=== PATIENT | male | born 1970 | race Caucasian/White ===

== ENCOUNTER 2025-01-21 10:03 | Observation (INO) ==
--- NOTE | 2024-12-22 15:32 | PAT Medication Instructions ---
Medication Instructions Date of Service December 22, 2024 Home Medications atorvastatin 40 mg tablet 40 mg PO DAILY celecoxib 200 mg capsule (Celebrex) 200 mg PO DAILY dapagliflozin propanediol 10 mg tablet (Farxiga) 10 mg PO DAILY dextroamphetamine-amphetamine 10 mg tablet (Adderall) 20 mg PO QAM duloxetine 30 mg capsule,delayed release 30 mg PO DAILY duloxetine 60 mg capsule,delayed release 60 mg PO DAILY gabapentin 300 mg capsule 300 mg PO BID levothyroxine 100 mcg tablet 100 mcg PO DAILY lisinopril 40 mg tablet 40 mg PO DAILY tirzepatide 15 mg/0.5 mL subcutaneous pen injector (Mounjaro) 15 mg subcut Q7D Continue as directed atorvastatin 40 mg tablet 40 mg PO DAILY duloxetine 30 mg capsule,delayed release 30 mg PO DAILY duloxetine 60 mg capsule,delayed release 60 mg PO DAILY levothyroxine 100 mcg tablet 100 mcg PO DAILY ASK your surgeon for instructions celecoxib 200 mg capsule (Celebrex) 200 mg PO DAILY STOP taking at least 7 days before surgery tirzepatide 15 mg/0.5 mL subcutaneous pen injector (Mounjaro) 15 mg subcut Q7D STOP taking 3 days before surgery dapagliflozin propanediol 10 mg tablet (Farxiga) 10 mg PO DAILY DO NOT take the morning of surgery dextroamphetamine-amphetamine 10 mg tablet (Adderall) 20 mg PO QAM lisinopril 40 mg tablet 40 mg PO DAILY Take morning of surgery With a small sip of water, OTHERWISE NOTHING TO EAT OR DRINK AFTER MIDNIGHT: gabapentin 300 mg capsule 300 mg PO BID Take evening before surgery gabapentin 300 mg capsule 300 mg PO BID Other Notes If you have any questions please call us at [phone] or [phone] or [phone] or [phone]
--- NOTE | 2024-12-29 12:43 | Anesthesiology Consultation ---
Date of Service December 29, 2024 Assessment & Plan (1) Encounter for pre-operative examination: - Check BSG DOS - Infectious disease screening: Per assessment on 12/29/24- No known recent infectious disease contacts or current infectious disease symptoms. - GLP-1 medication instructions: Patient informed by PAT to stop 7 days prior to surgery- voiced understanding. DOS 01/21. Advised last dose to be 01/14. - Patient acceptable risk for surgery pending surgeon-ordered PCP preop evaluation (Dr. Emerson Mcdaniels, appt 01/08). Chart Review Chart Review: Patient seen in Pre Admission Testing Teaching & Discussion Pre-Anesthesia Teaching/Discussion Notes: Instructed NPO after midnight before surgery,except medications with 15 cc of water. Medication instructions provided according to the PAT guidelines. History Surgery Operation Date: 01/21/25 07:45 Proposed Procedures p L2-L5 Decompression and Fusion - Warren Zelaya DO Height/Weight Height: 6 ft Weight: 158.6 kg Allergies Allergy/AdvReac Type Severity Reaction Status Date / Time No Known Allergies Allergy Verified 12/22/24 11:13 Medications Home Medications Medication Instructions Recorded Confirmed Last Taken atorvastatin 40 mg tablet 40 mg PO DAILY 12/22/24 12/22/24 Unknown celecoxib 200 mg capsule (Celebrex) 200 mg PO DAILY 12/22/24 12/22/24 Unknown dapagliflozin propanediol 10 mg 10 mg PO DAILY 12/22/24 12/22/24 Unknown tablet (Farxiga) dextroamphetamine-amphetamine 10 20 mg PO QAM 12/22/24 12/22/24 Unknown mg tablet (Adderall) duloxetine 30 mg capsule,delayed 30 mg PO DAILY 12/22/24 12/22/24 Unknown release duloxetine 60 mg capsule,delayed 60 mg PO DAILY 12/22/24 12/22/24 Unknown release gabapentin 300 mg capsule 300 mg PO BID 12/22/24 12/22/24 Unknown levothyroxine 100 mcg tablet 100 mcg PO DAILY 12/22/24 12/22/24 Unknown lisinopril 40 mg tablet 40 mg PO DAILY 12/22/24 12/22/24 Unknown tirzepatide 15 mg/0.5 mL 15 mg subcut Q7D 12/22/24 12/22/24 Unknown subcutaneous pen injector (Arina) Past Medical History Medical History History of ADHD History of anxiety History of arthritis Hx shoulder/knee steroid injections History of hyperlipidemia History of hypertension History of hypothyroidism History of prediabetes Hx of gastroesophageal reflux (GERD) Morbid obesity Sleep apnea CPAP (rare use since weight loss) Exercise / Class Metabolic Activity II 4-5 Yardwork/Stairs/Walk up hill (one FS: No CP, no SOB) Past Surgical History Surgical History History of anal fistulotomy Hx of colonoscopy Past Anesthesia History No Hx of Anesthesia Complications and No Family Hx of Anesthesia Complications History of PONV No Hx of PONV and No Hx of Motion Sickness Social History Smoking Status: Former smoker Do You Dip or Chew Tobacco: No (Quit 2 weeks ago- now using nicotine-free pouches (Advised NPO guidelines))) Smoking End Date: Quit several years ago Hx Alcohol Use: Yes alcohol intake frequency: holidays/special occasions only Hx Substance Use: Yes substance use type: marijuana (Age earlier 20s) Review of Systems Patient denies chest pain, shortness of breath, dyspnea on exertion, fever, chills, cough, wheezing, palpitations. Physical Exam Vital Signs BP 101/70 P 79 TEMP 98.1 SP02 95%RA RESP 16 Physical Full cervical extension range of motion. Full TMJ range of motion. TMD > 3.5 finger breaths Mallampati Score II Dentition: missing molars, Lungs: clear throughout to auscultation Cardiac: regular rate and rhythm, no murmurs noted Spine: normal Carotid arteries: negative bruit Extremities: no LE edema Short, thick neck Lab Results Anesthesia Preop Results Results Anesthesia Widget: WBC 5.81 K/ul (4.8-10.8) 12/29/24 Hgb 16.0 g/dl (14.0-18.0) 12/29/24 Hct 46.8 % (42.0-52.0) 12/29/24 Plt 177 K/uL (130-400) 12/29/24 Na 138 mmol/L (136-145) 12/29/24 K 3.9 mmol/L (3.5-5.1) 12/29/24 Cl 102 mmol/L (98-107) 12/29/24 CO2 30 mmol/L (21-32) 12/29/24 BUN 21 mg/dl (6-23) 12/29/24 Creat 0.72 mg/dl (0.6-1.4) 12/29/24 Glucose Level 93 mg/dl (70-99(Fasting)) 12/29/24 PT 10.5 Seconds (9.0-12.0) 12/29/24 PTT 29 Seconds (21-31) 12/29/24 INR 1.0 (0.9-1.1) 12/29/24 HA1c 5.1 % (4.5-5.6) 12/29/24 Urine Color Yellow 12/29/24 Urine Appearance Clear (Clear) 12/29/24 Urine pH 5.5 (4.5-7.5) 12/29/24 Urine Specific [place] 1.025 (1.000-1.030) 12/29/24 Urine Protein Negative (Negative) 12/29/24 Urine Glucose (UA) 3+ (Negative) H 12/29/24 Urine Ketones Negative (Negative) 12/29/24 Urine Blood Negative (Negative) 12/29/24 Urine Nitrite Negative (Negative) 12/29/24 Urine Bilirubin Negative (Negative) 12/29/24 Urine Urobilinogen Negative (Negative) 12/29/24 Urine Leukocyte Esterase Negative (Negative) 12/29/24 Blood Type A Positive 12/29/24 Antibody Screen NEGATIVE 12/29/24 Testing Electrocardiogram Date: 12/29/24 NSR at 77bpm. Low voltage QRS. Chest X-Ray Date: 12/29/24 FINDINGS: Heart size and pulmonary vasculature are normal. No consolidation or pleural effusion. IMPRESSION: No acute findings.
[2025-01-21] MEDS: LR 60ML/HR IV SCH (10:24)
[2025-01-21] MEDS: CeleBREX 200 MG CAP PO SCH (10:25)
[2025-01-21] MEDS: ACETAMINOPHEN 500 MG TAB PO SCH (10:25)
[2025-01-21] MEDS: GABAPENTIN 600 MG DOSE PO SCH (10:26)
[2025-01-21] MEDS ORDERED: DEXAMETHASONE SOD INJ 4 MG/ML VIAL ONE (10:40)
[2025-01-21] MEDS ORDERED: PROPOFOL IV EMULSION 10 MG/ML 20 ML VIAL IV ONE (10:40)
[2025-01-21] MEDS ORDERED: KETAMINE HCL 10MG/ML SYR ONE (10:40)
[2025-01-21] MEDS ORDERED: ONDANSETRON INJ 2 MG/ML 2 ML VIAL ONE (10:40)
[2025-01-21] MEDS ORDERED: SUGAMMADEX SODIUM 200 MG/2 ML VIAL IV ONE (10:40)
[2025-01-21] MEDS ORDERED: LIDOCAINE 2% 2 ML VIAL/AMP(20MG/ML) INFIL ONE (10:40)
[2025-01-21] MEDS ORDERED: MIDAZOLAM HCL 1 MG/ML 2ML VIAL ONE (10:40)
[2025-01-21] MEDS ORDERED: ROCURONIUM BROMIDE 10 MG/ML 5 ML VIAL IV ONE (10:40)
[2025-01-21] MEDS: LR 15ML/HR IV SCH (10:55)
[2025-01-21] MEDS ORDERED: ONDANSETRON INJ 2 MG/ML 2 ML VIAL IV PRN ×2 (11:37→18:12)
[2025-01-21] MEDS ORDERED: ATROPINE SULFATE 0.1 MG/ML 10ML SYR IV PRN (11:37)
--- NOTE | 2025-01-21 12:11 | History & Physical Bridge Note ---
Date of Service January 21, 2025 History & Physical Bridge Note I have examined the patient, reviewed the History & Physical and in the interval since the performance of the History & Physical I have noted the following changes of clinical significance: no changes noted
--- NOTE | 2025-01-21 12:12 | History & Physical Report ---
Date of Service January 21, 2025 Assessment & Plan (1) Multilevel lumbosacral spondylosis with radiculopathy: Plan: L2-L5 decompression and fusion History of Present Illness Chief Complaint: Back and bilateral leg pain Primary Care Provider: Emerson Mcdaniels DO This is a 54-year-old male who presents for chronic persistent back and bilateral leg pain after failing course of nonoperative care he is here for surgical invention. Allergies Allergy/AdvReac Type Severity Reaction Status Date / Time No Known Allergies Allergy Verified 01/21/25 10:20 Home Medications Medication Instructions Recorded Confirmed Type atorvastatin 40 mg tablet 40 mg PO DAILY 12/22/24 01/21/25 History celecoxib 200 mg capsule (Celebrex) 200 mg PO DAILY 12/22/24 01/21/25 History dapagliflozin propanediol 10 mg 10 mg PO DAILY 12/22/24 01/21/25 History tablet (Farxiga) dextroamphetamine-amphetamine 10 20 mg PO QAM 12/22/24 01/21/25 History mg tablet (Adderall) duloxetine 30 mg capsule,delayed 30 mg PO DAILY 12/22/24 01/21/25 History release duloxetine 60 mg capsule,delayed 60 mg PO DAILY 12/22/24 01/21/25 History release gabapentin 300 mg capsule 300 mg PO BID 12/22/24 01/21/25 History levothyroxine 100 mcg tablet 100 mcg PO DAILY 12/22/24 01/21/25 History lisinopril 40 mg tablet 40 mg PO DAILY 12/22/24 01/21/25 History tirzepatide 15 mg/0.5 mL 15 mg subcut Q7D 12/22/24 01/21/25 History subcutaneous pen injector (Mounjaro) Past Med/Surg History Problem List (Updated 01/21/25 @ 12:11 by Warren Zelaya DO) Multilevel lumbosacral spondylosis with radiculopathy Encounter for pre-operative examination Medical History History of ADHD History of anxiety History of arthritis Hx shoulder/knee steroid injections History of hyperlipidemia History of hypertension History of hypothyroidism History of prediabetes Hx of gastroesophageal reflux (GERD) Morbid obesity Sleep apnea CPAP (rare use since weight loss) Surgical History History of anal fistulotomy Hx of colonoscopy Social History Smoking Status: Former smoker Smoking End Date: Quit several years ago; Second Hand Exposure: Yes (hx as child); Do You Dip or Chew Tobacco: No (Quit 2 weeks ago- now using nicotine-free pouches (Advised NPO guidelines))); Tobacco Cessation Education Requested by Patient: No Hx Alcohol Use: Yes Hx Substance Use: Yes Preferred Language: Welsh Communication Ability: Effective Licensing Registration Examiner Required: No Beliefs That Will Affect Care: None Current Living Situation: Spouse Other Information That Helps Us Care for You: No Feels Safe at Home: Yes Safety Concerns: Feels Safe At This Time Assistive Devices: Glasses Assistive Devices Comment: reading glasses prn Physical Exam Physical Exam: Patient alert and oriented Heart regular rhythm Lungs clear Results & Data Results & Data Vital Signs (Past 12 Hours) Vital Signs Temp Pulse Resp BP Pulse Ox O2 Del Method 01/21/25 10:18 36.6 C 80 20 139/73 98 Room Air
[2025-01-21] MEDS ORDERED: GLYCOPYRROLATE 0.2 MG/ML VIAL ONE (12:33)
[2025-01-21] MEDS: ceFAZolin 3000MG 3,000 MG/72.5 ML BAG IV SCH ×2 (13:00→22:15)
[2025-01-21] MEDS: BUPIVACAINE/EPINEPHRINE 0.25% 1:200,000 30 ML VIAL ONE (13:29)
[2025-01-21] MEDS ORDERED: PHENYLEPHRINE 100MCG/ML 5ML SYR ONE (13:31)
[2025-01-21] MEDS ORDERED: ePHEDrine sulfate 50 MG/5 ML SYR ONE (14:33)
[2025-01-21] MEDS: ceFAZolin 330 MG/ML 1 GM VIAL ONE (15:20)
[2025-01-21] MEDS: FLOSEAL HEMOSTATIC MATRIX 10ML TOP ONE (15:27)
--- NOTE | 2025-01-21 15:37 | Operative Report ---
Post Operative Report Pre & Post Diagnosis Operation Date: 01/21/25 12:15 Pre-Op Diagnosis: #1 multilevel lumbosacral spondylosis with radiculopathy #2 lumbar disc herniation with radiculopathy #3 lumbar spinal stenosis #4 morbid obesity Post-Op Diagnosis: Same I identified the patient and participated in the time-out.: Yes Procedure Operation Date: 01/21/25 12:15 Actual Procedures #1 lumbar decompression bilateral medial facetectomies and foraminotomies L2-L3, L3-L4, L4-L5 and L5 5 S1. #2 posterior spinal fusion L3-S1. #3 posterior posterior segmental instrumentation L3-S1 using camber. #4 interbody fusion L3- L4, L4-L5 and L5-S1. #5 placement Spira 12 x 26 mm at L3-L4, 13 x 26 mm at all 4 L5 and 14 x 26 mm x 2 at L5-S1. #6 placement locally harvested morselized autograft in the posterior gutters per #7 placement of Proteus combined with Koros in the posterior lateral gutters and os design with Koros in the interbody spaces. #8 application of versa wrap of the exposed dura. Surgeon Warren Zelaya, DO Mannequin Mold Maker Leonor Petersen Estimated Blood Loss 500 Findings See Below The patient is 6 foot tall weighing over 157 kg with a BMI in excess of 47. The patient's body habitus did contribute to significant technical difficulty with positioning exposure and the procedure itself and at least 50% increased operative time. And recommending a modifier 22. Specimens None Indications This is a 54-year-old male who presents publish diagnosis of failing send course of nonoperative care is here for surgical invention. Description of Procedure Patient was met with identified informed consent obtained. Patient was then taken to the operative suite underwent patient placed in a prone position on the Jamin table atop the Clayton frame. All bony prominences well-padded eyes inspected to ensure no external pressure placed upon them. This point the lumbar spine was prepped and draped in normal sterile fashion. Sharp dissection with the assistance of Bovie cautery from down to and exposing the lamina transverse processes of L2-3 L4-L5 and the sacral ala bilaterally. I did extend the dissection to incorporate the L5-S1 level based on our preoperative fluoroscopy films demonstrating marked vacuum phenomenon and retrolisthesis at L5-S1. I then performed a complete laminectomy of L5 L4 L3 impression laminectomy of L2 including bilateral medial facetectomies and foraminotomies addressing severe neural compression and foraminal stenosis. Disc herniation was noted at L5-S1 on the right was also addressed. Pedicle screws placed in L3-L4-L5 and S1 levels bilaterally with assistance of fluoroscopy and appropriate size jenny placed. By way of transforaminal approach on the left discectomy of L5-S1 was performed endplates corrected to subcortical bleeding bone and a 14 x 26 mm Spira cage tapped in position. Then proceeded to the right transforaminal region at L5-S1. Again discectomy performed. Endplates guided to subcortical mean bone and a second 14 x 26 mm Spira cage tapped into position. And then proceeded to L4-L5 by way of transforaminal approach on the right complete discectomy was performed endplates guided to subcortical bleeding bone and a 13 x 26 mm Spira cage tapped into position. Lastly approached L3-L4. Bilateral transforaminal approach on the right discectomy was performed. Endplates guided to subcortical and bone and a 12 x 26 mm Spira cage tapped into position. Please note Koros bone graft was placed anteriorly and all disc spaces and cages packed with os design bone graft prior to placement. Rods were then locked into position bilaterally. The transverse processes of L3-L4-L5 and the sacral ala burred to subcortical bleeding bone. Proteus combined with Koros and local autograft placed in posterior gutters. Versa wrap placed over the exposed dura. 15 round ARLEN drain inserted. The incision was then closed with 1 Vicryl in the fascia 2-0 Vicryl subcutaneously and 4-0 Monocryl for final skin closure. Steri-Strips sterile dressing placed. Patient waken taken to PACU stable condition. Please note Leonor Petersen was present of entire procedure involved the patient positioning complex portion of the surgery and final skin closure. I attest to the content of the Intraoperative Record and any orders documented therein. Any exceptions are noted below.
--- NOTE | 2025-01-21 15:50 | Fluoroscopy Report ---
FL lumbar spine 2-3V CLINICAL HISTORY: L2-L5 DECOMPRESSION AND FUSION COMPARISON STUDY: None FLUOROSCOPY TIME: 35 seconds FLUOROSCOPY IMAGES: 4 EXPOSURE DOSE: 47 mGy FINDINGS: Fluoroscopy was provided for lumbar metallic fusion. IMPRESSION: Intraoperative fluoroscopy. ACT 112: Negative or not required by law. Electronically signed by: Augustus David M.D. 01/21/2025 3:49 PM
--- NOTE | 2025-01-21 16:51 | Anesthesiology Progress Note ---
Date of Service January 21, 2025 Anesthesia Post Procedure Vital Signs Vital Signs: Temp Pulse Resp BP Pulse Ox O2 Del Method O2 Flow Rate 01/21/25 16:45 68 14 133/68 92 Nasal Cannula 3 01/21/25 16:35 71 12 112/61 93 Nasal Cannula 3 01/21/25 16:25 71 14 123/65 92 Nasal Cannula 3 01/21/25 16:15 72 16 113/62 93 Nasal Cannula 01/21/25 16:05 70 18 116/67 95 Nasal Cannula 01/21/25 15:55 36.1 C L 78 16 136/73 97 Nasal Cannula 01/21/25 10:18 36.6 C 80 20 139/73 98 Room Air Pain Intensity Lower Back: Pain Intensity: 5 Transfer of Care Handoff Completed per policy Notes Mental Status: alert / awake / arousable Patient Amnestic to Procedure: Yes Nausea / Vomiting: adequately controlled Pain: adequately controlled Airway Patency, RR, SpO2: stable & adequate BP & HR: stable & adequate Hydration State: stable & adequate Anesthetic Complications: no major complications apparent
[2025-01-21] MEDS ORDERED: ONDANSETRON 4 MG OD TAB PO PRN (18:12)
[2025-01-21] MEDS ORDERED: ACETAMINOPHEN 1,000 MG/100 ML VIAL IV PRN (18:12)
[2025-01-21] MEDS ORDERED: METOCLOPRAMIDE HCL INJ 5 MG/ML 2 ML VIAL IV PRN (18:12)
[2025-01-21] MEDS ORDERED: DO NOT ADMINISTER PNEUMOCOCCAL VACCINE PRN (18:12)
[2025-01-21] MEDS ORDERED: SOD PHOSPHATE/SOD BIPHOSPHATE ENEMA 132 ML BTL PR PRN (18:12)
[2025-01-21] MEDS ORDERED: LORazepam 0.5 MG TAB PO PRN (18:12)
[2025-01-21] MEDS ORDERED: MAGNESIUM HYDROXIDE SUSP 30 ML UDC PO PRN (18:12)
[2025-01-21] MEDS ORDERED: diphenhydrAMINE Capsule 25 MG CAP PO PRN (18:12)
[2025-01-21] MEDS ORDERED: DO NOT ADMINISTER FLU VACCINE PRN (18:12)
[2025-01-21] MEDS ORDERED: NALOXONE HCL 0.4 MG/1 ML VIAL/CARP IV PRN (18:12)
[2025-01-21] MEDS ORDERED: FAMOTIDINE 20 MG TAB PO PRN (18:12)
[2025-01-21] MEDS ORDERED: ALUMINUM/MAGNESIUM SUSP 30 ML UDC PO PRN (18:12)
[2025-01-21] MEDS ORDERED: PROMETHAZINE 12.5 MG/50.5 ML BAG IV PRN (18:12)
[2025-01-21] MEDS: DOCUSATE SODIUM/SENNA 50/8.6MG TAB PO SCH (21:20)
[2025-01-21] MEDS: dexAMETHasone 8 MG in SYRINGE 0 ML IV SCH (21:20)
[2025-01-21] MEDS: GABAPENTIN 300 MG CAP PO SCH (21:20)
--- NOTE | 2025-01-22 02:33 | Hospitalist Consultation ---
Date of Consultation January 22, 2025 Assessment & Plan (1) Multilevel lumbosacral spondylosis with radiculopathy: (2) History of ADHD: (3) History of hyperlipidemia: (4) History of hypertension: (5) History of hypothyroidism: (6) Sleep apnea: (7) Diabetes mellitus type 2, controlled: Plan Patient is a 54-year-old male with past medical history of ADHD, hypothyroidism, diabetes mellitus type 2, hypertension, hyperlipidemia, and lumbar radiculopathy secondary to disc herniation and spinal stenosis who is POD #0 status post L2-L5 decompression and fusion. Hospitalist service consulted for continued management of chronic conditions. Lumbar radiculopathy secondary to disc herniation and spinal stenosis Underwent decompression and fusion on 01/21 Pain currently well-controlled with current analgesic regimen Patient had been taking Celebrex, as well as gabapentin and Cymbalta in an effort to control the lower back and bilateral lower extremity pain that came as a consequence of his medical radiculopathy. Patient expressing preference to eventually discontinue his medications, which will likely need to be tapered off (i.e. Cymbalta and Gabapentin). Encouraged outpatient follow-up with PCP. Further management per surgery team Hypertension Blood pressure is currently well-controlled Continue home lisinopril 40 mg daily Hyperlipidemia Continue home atorvastatin 40 mg daily Hypothyroidism Continue home levothyroxine 100 mcg every morning DM-II Most recent hemoglobin A1c from 01/05 of 5.1% Patient on Farxiga 10 mg and Mounjaro at home, the latter of which she also uses for management of his weight Would consider monitor of bsg given use of steroid medications as this can cause elevations Can continue Farxiga medication during current admission, I can resume Mounjaro after discharge Supervising Physician Co-Signing Physician Notes Attending addendum: I have physically seen this patient, have supervised the medical residents activities, and agree with the H&P unless as otherwise noted. Assessment and Plan: The patient is a 54-year-old male with a past medical history including ADHD, hypothyroidism, diabetes mellitus type 2, hypertension, and hyperlipidemia. He is status post L2-L5 decompression and fusion by Dr. José Miguel Zelaya for lumbar radiculopathy secondary to disc herniation and spinal stenosis earlier in the day today. The hospitalist service is consulted for medical management. The patient is seen postoperatively and is medically stable. Lumbar radiculopathy secondary to disc herniation and spinal stenosis status post L2-L5 decompression and fusion- Seen postoperatively is medically stable Pain management per primary surgical team Hypertension- Blood pressure is well-controlled at this time Continue lisinopril 40 mg daily Follow BMP in the a.m. Diabetes mellitus- Most recent A1c on 01/05 was 5.1 Farxiga to be continued during admission Mounjaro can be resumed after discharge Place on Accu-Cheks with NovoLog SSI Hyperlipidemia- Continue atorvastatin Hypothyroidism- Continue levothyroxine [facility] hospitalist service will follow along during hospital stay History of Present Illness Reason for Consultation: Medical management Requesting Physician: Warren Zelaya DO Attending Physician: Sukhwinder Mtz MD History of Present Illness Patient is a 54-year-old male with past medical history of ADHD, hypothyroidism, diabetes mellitus type 2, hypertension, hyperlipidemia, and lumbar radiculopathy secondary to disc herniation and spinal stenosis who is POD #0 status post L2-L5 decompression and fusion. Patient had been experiencing lumbar pain with radiation to bilateral lower extremities with symptoms being R>L since 2014. When symptoms started, patient had been managed conservatively with daily dosing of Mobic, which was successful in controlling his symptoms for close to 9 years. After this time, patient had poorly controlled symptoms despite regular use of Mobic, was switched to Celebrex in combination with gabapentin and Cymbalta and attempt to manage his pain, but was ultimately unsuccessful, and therefore decision was made to proceed with surgical intervention. On arrival to bedside, patient states that he is feeling generally well and feels that his pain is well-controlled. Denies having any fevers, chills, chest pain, shortness of breath, nausea, vomiting, diarrhea, or any other systemic symptoms. Allergies Allergy/AdvReac Type Severity Reaction Status Date / Time No Known Allergies Allergy Verified 01/21/25 10:20 Home Medications Medication Instructions Recorded Confirmed Type atorvastatin 40 mg tablet 40 mg PO DAILY 12/22/24 01/21/25 History celecoxib 200 mg capsule (Celebrex) 200 mg PO DAILY 12/22/24 01/21/25 History dapagliflozin propanediol 10 mg 10 mg PO DAILY 12/22/24 01/21/25 History tablet (Farxiga) dextroamphetamine-amphetamine 10 20 mg PO QAM 12/22/24 01/21/25 History mg tablet (Adderall) duloxetine 30 mg capsule,delayed 30 mg PO DAILY 12/22/24 01/21/25 History release duloxetine 60 mg capsule,delayed 60 mg PO DAILY 12/22/24 01/21/25 History release gabapentin 300 mg capsule 300 mg PO BID 12/22/24 01/21/25 History levothyroxine 100 mcg tablet 100 mcg PO DAILY 12/22/24 01/21/25 History lisinopril 40 mg tablet 40 mg PO DAILY 12/22/24 01/21/25 History tirzepatide 15 mg/0.5 mL 15 mg subcut Q7D 12/22/24 01/21/25 History subcutaneous pen injector (Mounjaro) oxycodone 5 mg tablet 5 mg PO Q6H PRN pain #30 tabs 01/22/25 Rx tramadol 50 mg tablet 50 mg PO Q6H PRN pain, moderate 01/22/25 Rx #30 tabs Patient History Medical History History of ADHD History of anxiety History of arthritis Hx shoulder/knee steroid injections History of hyperlipidemia History of hypertension History of hypothyroidism History of prediabetes Hx of gastroesophageal reflux (GERD) Morbid obesity Sleep apnea CPAP (rare use since weight loss) Surgical History History of anal fistulotomy Hx of colonoscopy Social History Smoking Status: Former smoker Smoking End Date: Quit several years ago; Second Hand Exposure: Yes (hx as child); Do You Dip or Chew Tobacco: No (Quit 2 weeks ago- now using nicotine-free pouches (Advised NPO guidelines))); Tobacco Cessation Education Requested by Patient: No Hx Alcohol Use: Yes Hx Substance Use: Yes Preferred Language: Greek Communication Ability: Effective Support Analyst Required: No Beliefs That Will Affect Care: None Current Living Situation: Spouse Other Information That Helps Us Care for You: No Feels Safe at Home: Yes Safety Concerns: Feels Safe At This Time Assistive Devices: Cane Assistive Devices Comment: reading glasses prn Physical Exam Physical Exam: General: Awake alert and oriented in all spheres, afebrile, calm, nontoxic, no acute distress HEENT: EOM intact, PERRL Cardiac: Regular rate and rhythm, no rubs murmurs or gallops appreciated Pulmonary: Clear to auscultation bilaterally, normal respiratory effort, no respiratory distress GI: Soft, nontender, nondistended Extremity: No swelling or calf tenderness in bilateral lower extremities Results & Data Results & Data Vital Signs (Past 12 Hours) Vital Signs Temp Pulse Resp BP BP Pulse Ox O2 Del Method 01/21/25 23:23 37.6 C H 89 18 127/76 94 Room Air 01/21/25 21:10 37.1 C 81 18 134/78 95 Room Air 01/21/25 20:19 36.9 C 83 18 156/80 H 95 Nasal Cannula 01/21/25 19:30 Nasal Cannula 01/21/25 19:10 36.3 C L 77 18 164/89 H 96 Nasal Cannula 01/21/25 18:40 79 16 183/92 H 98 Nasal Cannula 01/21/25 18:29 Nasal Cannula 01/21/25 18:10 36.9 C 79 16 118/73 98 Nasal Cannula 01/21/25 17:30 67 16 100/57 L 93 Nasal Cannula 01/21/25 17:00 36.5 C 68 14 139/68 92 Nasal Cannula 01/21/25 16:45 68 14 133/68 92 Nasal Cannula 01/21/25 16:35 71 12 112/61 93 Nasal Cannula 01/21/25 16:25 71 14 123/65 92 Nasal Cannula 01/21/25 16:15 72 16 113/62 93 Nasal Cannula 01/21/25 16:05 70 18 116/67 95 Nasal Cannula 01/21/25 15:55 36.1 C L 78 16 136/73 97 Nasal Cannula O2 Flow Rate 01/21/25 23:23 01/21/25 21:10 01/21/25 20:19 2 01/21/25 19:30 2 01/21/25 19:10 2 01/21/25 18:40 2 01/21/25 18:29 2 01/21/25 18:10 2 01/21/25 17:30 3 01/21/25 17:00 3 01/21/25 16:45 3 01/21/25 16:35 3 01/21/25 16:25 3 01/21/25 16:15 3 01/21/25 16:05 3 01/21/25 15:55 3 Resident Activity Tracking Resident Involvement: Resident Care Provided Care Provided: Adult Hospital Medicine
[2025-01-22] MEDS: LEVOTHYROXINE SODIUM 100 MCG TABLET PO SCH (05:41)
[2025-01-22] MEDS: POLYETHYLENE (MIRALAX) 17 GM PACK PO SCH (05:41)
[2025-01-22] MEDS: ACETAMINOPHEN 500 MG TAB PO PRN (05:47)
[2025-01-22] MEDS: ATORVASTATIN 40 MG TAB PO SCH (08:17)
--- NOTE | 2025-01-22 09:34 | Orthopedic Progress Note ---
Date of Service January 22, 2025 Assessment & Plan (1) Multilevel lumbosacral spondylosis with radiculopathy: Plan: At this time we will continue physical therapy monitor his ARLEN operatively discharge home in the next few days. Admission and Anticipated Discharge Date Admission Date: January 21, 2025 Subjective Back pain is controlled leg pain markedly improved patient is ambulating halls Physical Exam Physical Exam: Patient is up and ambulating halls. Excellent posture. No strength testing. Results & Data Vital Signs (Past 12 Hours) Vital Signs Temp Pulse Resp BP Pulse Ox O2 Del Method 01/22/25 07:24 37.3 C 90 17 149/88 H 93 Room Air 01/22/25 04:49 37.4 C 93 Room Air 01/22/25 02:58 37.6 C H 95 H 16 157/83 H 94 Room Air 01/21/25 23:23 37.6 C H 89 18 127/76 94 Room Air Queries Orthopedic Spine Obesity: Yes
--- NOTE | 2025-01-22 09:37 | Orthopedic Progress Note ---
Date of Service January 22, 2025 Assessment & Plan (1) Multilevel lumbosacral spondylosis with radiculopathy: Plan: Roshan is postoperative day 1 status post L3-S1 decompression and fusion. Will continue with ambulation. Continue with pain control. DVT prophylaxis is in the form of teds and SCDs. Maintain ARLEN drain. Continue with aggressive bowel regimen. Anticipate discharge home within the next couple of days Admission and Anticipated Discharge Date Admission Date: January 21, 2025 Oneida Islas is postoperative day 1 status post L3-S1 decompression and fusion. He has had an uneventful evening. He is up with physical therapy today upon evaluation. ARLEN drain output left shift is 120 cc. Leg pain greatly improved. Back pain is controlled. Review of Systems Review of Systems: All systems reviewed & are unremarkable except as noted in HPI & below Physical Exam Physical Exam: He is seen in conjunction with Dr. Zelaya he is seen in the [facility] with physical therapy team as well. Lumbar dressing is clean dry and intact with functioning ARLEN drain Strength intact bilateral lower extremities Results & Data Vital Signs (Past 12 Hours) Vital Signs Temp Pulse Resp BP Pulse Ox O2 Del Method 01/22/25 07:24 37.3 C 90 17 149/88 H 93 Room Air 01/22/25 04:49 37.4 C 93 Room Air 01/22/25 02:58 37.6 C H 95 H 16 157/83 H 94 Room Air 01/21/25 23:23 37.6 C H 89 18 127/76 94 Room Air Queries Orthopedic Spine Obesity: Yes
[2025-01-22 10:14] LABS: Hematocrit (blood only) 42.0 % (42.0-52.0); Hemoglobin 14.8 g/dl (14.0-18.0); Immature Granulocytes # (auto) 0.04 K/uL (0.01-0.20); Immature Granulocytes % (auto) 0.3 %; Mean Corpuscular Hemoglobin 30.9 pg (25.0-34.0); Mean Corpuscular Volume 87.7 fL (80.0-100.0); Platelet Count 217 K/uL (130-400); RDW Standard Deviation 38.9 fL (36.4-46.3); Red Blood Count 4.79 M/uL (4.70-6.10); White Blood Count 12.06 K/ul (4.8-10.8)
[2025-01-22 10:32] LABS: Anion Gap 12.0 (3-11); Blood Urea Nitrogen 13.0 mg/dl (6-23); Calcium 9.2 mg/dl (8.6-10.3); Carbon Dioxide 24.0 mmol/L (21-32); Chloride 100.0 mmol/L (98-107); Creatinine Clr Calc Pharmacy 173.2 ml/min; Glucose 206.0 mg/dl (70-99(Fasting)); Potassium 4.0 mmol/L (3.5-5.1); Sodium 136.0 mmol/L (136-145)
--- NOTE | 2025-01-22 12:59 | Hospitalist Progress Note ---
Date of Service January 22, 2025 Assessment & Plan (1) Multilevel lumbosacral spondylosis with radiculopathy: (2) History of ADHD: (3) History of hyperlipidemia: (4) History of hypertension: (5) History of hypothyroidism: (6) Sleep apnea: (7) Diabetes mellitus type 2, controlled: Plan Patient is a 54-year-old male with past medical history of ADHD, hypothyroidism, diabetes mellitus type 2, hypertension, hyperlipidemia, and lumbar radiculopathy secondary to disc herniation and spinal stenosis who is POD #0 status post L2-L5 decompression and fusion. Hospitalist service consulted for continued management of chronic conditions. Lumbar radiculopathy secondary to disc herniation and spinal stenosis - Underwent decompression and fusion on 01/[address] Zelaya Patient had been taking Celebrex, as well as gabapentin and Cymbalta in an effort to control the lower back and bilateral lower extremity pain that came as a consequence of his medical radiculopathy. Patient expressing preference to eventually discontinue his medications, which will likely need to be tapered off (i.e. Cymbalta and Gabapentin). Encouraged outpatient follow-up with PCP. Further management per surgery team Hypertension Continue home lisinopril 40 mg daily Hyperlipidemia Continue home atorvastatin 40 mg daily Hypothyroidism Continue home levothyroxine 100 mcg every morning DM-II Most recent hemoglobin A1c from 01/05 of 5.1% Patient on Farxiga 10 mg and Mounjaro at home, the latter of which she also uses for management of his weight Would consider monitor of bsg given use of steroid medications as this can cause elevations Farxiga not available inpatient, change BSG's to every morning. Resume home meds at discharge Thank you for allowing us to participate in the care of this patient, please reach out with any questions or concerns. Hospital medicine will sign off Admission and Anticipated Discharge Date Admission Date: January 21, 2025 Supervising Physician Co-Signing Physician Notes The patient was not seen by me. The chart was reviewed. Case discussed with QUINTON Manzano. Agree with assessment and plan Subjective sitting up in the chair, pain is greatly improved since surgery, has already Ambulated in the halls multiple times today. Review of Systems Review of Systems: All systems reviewed & are unremarkable except as noted in Subjective Physical Exam Physical Exam: General: NAD, vitals as above, sitting on the side of bed Pulm: breathing unlabored CV: well perfused : Calvin in place ARLEN drain with bloody output extremities: moves all extremities Results & Data Results & Data Vital Signs (Past 12 Hours) Vital Signs Temp Pulse Resp BP BP Pulse Ox O2 Del Method 01/22/25 12:04 97.7 F 103 H 18 115/71 93 Room Air 01/22/25 08:00 Room Air 01/22/25 07:24 99.1 F 90 17 149/88 H 93 Room Air 01/22/25 04:49 99.3 F 93 Room Air 01/22/25 02:58 99.7 F H 95 H 16 157/83 H 94 Room Air PG Care Time/CCT Total # of Minutes Spent Total Time Spent with Patient: Total time spent is greater than 50% in coordination of care (as documented) at patient's floor/unit and/or counseling patient: Coding Level of Care Code None Diagnoses Multilevel lumbosacral spondylosis with radiculopathy M47.27 History of ADHD Z86.59 History of hyperlipidemia Z86.39 History of hypertension Z86.79 History of hypothyroidism Z86.39 Sleep apnea G47.30 Diabetes mellitus type 2, controlled E11.9
[2025-01-22 15:35] VITALS: RESP 16
--- NOTE | 2025-01-22 23:06 | Billing Data ---
Date of Service January 22, 2025 Coding Level of Care Code 60059 IN/OBS CONSULT LVL 3,45M
--- NOTE | 2025-01-23 11:06 | Orthopedic Progress Note ---
Date of Service January 23, 2025 Assessment & Plan (1) Multilevel lumbosacral spondylosis with radiculopathy: Plan: At this time we will continue physical therapy monitor his ARLEN output. Anticipate discharge home most likely tomorrow. Admission and Anticipated Discharge Date Admission Date: January 21, 2025 Subjective Patient's back pain is controlled leg symptoms improved. He is tolerating physical therapy. Physical Exam Physical Exam: Patient is currently in bed. He is comfortable. Good strength testing. Results & Data Vital Signs (Past 12 Hours) Vital Signs Temp Pulse Resp BP Pulse Ox O2 Del Method 01/23/25 08:10 Room Air 01/23/25 07:37 36.4 C L 81 16 147/80 H 93 Room Air 01/22/25 23:35 36.7 C 81 16 101/63 93 Room Air Queries Orthopedic Spine Obesity: Yes
[2025-01-23 23:08] VITALS: O2SAT 95
[2025-01-24 07:07] VITALS: BP 125/72; PULSE 82; TEMP 98.6
--- NOTE | 2025-01-24 08:07 | Discharge Summary ---
Date of Service January 24, 2025 Admission HPI Per Admitting Provider This is a 54-year-old male who presents for chronic persistent back and bilateral leg pain after failing course of nonoperative care he is here for surgical invention. Admission Exam (Per Admitting) Constitutional well developed Eyes normal visual gotti by confrontation ENMT external ear and nose normal, oropharynx normal Neck normal visual inspection Respiratory normal respiratory effort Cardiovascular Extremities: normal capillary refill Gastrointestinal (Abdomen) Inspection/Auscultation: abdomen normal to inspection Musculoskeletal Spine: lumbar spine normal to inspection and + pain with thoraco-lumbar ROM Extremities: extremities normal to inspection Gait: normal gait Skin no rashes, warm and dry Neurologic normal touch/pain/proprioception and moves all extremities Psychiatric A+Ox3, euthymic affect Eye Contact: good eye contact Discharge Data Consultations 01/21/25 18:12 Consult Hospitalist Routine Procedures Performed Operation Date: 01/21/25 12:15 Actual Procedures p L2-L5 Decompression and Fusion(Not Applicable) - Warren Zelaya DO Hospital Course (1) Multilevel lumbosacral spondylosis with radiculopathy: Roshan is being discharged home on postoperative day 3 status post L3-S1 decompression and fusion. His legs feel weak but pain has resolved. Back pain is controlled. He is had a bowel movement. ARLEN drain output last shift was 20 cc. Yesterday in physical therapy ambulated 275 feet plus the hallways with a walker Discharge Instructions ACTIVITY RECOMMENDATIONS: SELF CARE INSTRUCTIONS AFTER THORACIC/LUMBAR FUSIONS 1. You may walk to your tolerance. It is good exercise for your legs and back. Expect some back and intermittent leg aches and pains. 2. You may perform "counter-top" level activities (make a sandwich, sabas with a project, etc.). 3. No bending or lifting of more than 10 pounds or back twisting of any nature (roll like a log when turning in bed). 4. You may ride in a car for 20-30 minutes at a time. No driving until after your first visit with your doctor. 5. Frequent changes of position and restricting sitting to 30 minutes at a time will help limit the amount of back spasms and stiffness you may experience. 6. You may discontinue the use of ambulatory aids (cane, crutches, etc.) once your strength and confidence allow. 7. You may plastics production machine operator the shower and let water strike your incision when you arrive home at least once daily. Do not take a tub bath, sit in a hot tub or go into a swimming pool until after your first recheck in the office. 8. You may resume previous diet. SPECIAL CARE INSTRUCTIONS: VERY IMPORTANT TO READ AND REVIEW A. Your surgical incision has been closed with a cosmetic suture under the skin that will dissolve in about 6 weeks. In 14 days, you can use a pair of clean scissors and cut the suture that is left outside of the skin at the ends of your incision. 1. The small skin tapes can be removed 7 days after surgery if they have not fallen off by that point. 2. You may keep the wound open to air as much as possible to promote healing after post-op day number 5 unless told otherwise by your doctor. 3. If you think the wound looks like it is becoming infected (redness or wor sening drainage) and/or you are experiencing fever, chill or worsening back pain and muscle spasms, contact the office so that we may evaluate you as soon as possible. B. Complications are uncommon, but please contact us if you have any signs or symptoms of: 1. wound infection (fever higher than 102.5 degrees F, redness, separation of wound, drainage, or increasing pain from the incision) 2. blood clots in legs (pain, swelling, redness and warmth in legs) 3. urinary tract infection (fever higher than 102.5 degrees F, burning upon urination or increased frequency of urination) 4. nerve problems (inability to walk on your toes or heels, numbness, loss of bowel or bladder control) 5. any other symptoms that concern you C. Please call the office at if you have any concerns or questions about your operation or recovery. D. No smoking! Smoking drastically decreases the chance of a solid fusion. E. Do not take any anti-inflammatory medications (Indocin, Advil, Motrin, Aspirin, Naprosyn, etc.) as these may inhibit the chance of a solid fusion. Tylenol is okay to take for pain. MANAGING PAIN AFTER SPINAL SURGERY 1. Narcotic medication is intended for short-term use and will be provided for surgical pain. Surgical pain usually lasts for a period of 4-6 weeks. Narcotic medication includes Percocet, Vicodin, Darvocet, Tylenol #3 or Lortab. 2. Longer-term pain is more appropriately treated with non-narcotic medication such as Tylenol ES. 3. Muscle spasm is not appropriately treated with narcotics. Muscle relaxers such as Soma, Flexeril or Skelaxin can be used along with Tylenol ES. 4. Remember that we all live with some "aches and pains". This is not unusual or uncommon after an injury or as we get older. a. Back pain is expected and may include muscle spasms for 4 to 6 weeks after surgery. The pain should gradually improve. If the pain worsens for no apparent reason, please contact the office. b. Intermittent leg pain may also be experienced and should not be concerned about unless it worsens for no apparent reason. If so, please contact the office. 5. We will provide appropriate medication within the normal guidelines of their prescribed use. We will also be very cautious and aware of potential abuse and extended duration of patients' medication needs. a. Pain medications are for your comfort and to assist with sleep and rest so that the tissue can heal. They are not provided in order to return to normal activity and should not be used through the day. To do so or worsening pain at night can result from ongoing tissue damage and development of tolerance to the prescribed medicine. 6. Please allow 2-3 days to process refills. Prescriptions will not be mailed but must be picked up at the office. FOLLOW UP VISIT: Keep your scheduled follow-up appointment. Any questions, please call the office at .
== END 2025-01-24 13:36 | disposition home or self-care (01) | DRG 427 ==
LOC: ASU 10:03 → INTOOBSV 15:40 → SUATTDRO 15:40 → 3W 15:40